=== PATIENT | female | born 1970 | race Two or more races ===

== ENCOUNTER 2023-08-14 17:57 | Emergency (ER) | payer OTHER ==
[~2023-08-14] VITALS: Ht 167.6 cm; Wt 100.0 kg
[2023-08-14] MEDS ORDERED: ONDANSETRON ODT 4 MG TAB PO ONE (20:00)
[2023-08-14] MEDS ORDERED: MORPHINE SULFATE INJ 2 MG/ml SYRG IM ONE (20:00)
[2023-08-14 20:15] VITALS: TEMP 98
[2023-08-14 20:16] VITALS: O2SAT 94
[2023-08-14 20:36] VITALS: BP 120/63; PULSE 78; RESP 18
[2023-08-14] MEDS ORDERED: KETOROLAC TROMETH 60MG/2ML VIAL IM ONE (20:45)
[2023-08-14] MEDS ORDERED: ACE3T PO (22:36)
[2023-08-14] MEDS ORDERED: CYCL-837 PO (22:36)
[2023-08-14] MEDS ORDERED: CEPH500C PO (22:36)
== END 2023-08-14 23:18 | disposition home or self-care (01) ==
LOC: ER 17:57 → EDBD 17:57 → ER 23:00
DX: S22.088A Other fracture of T11-T12 vertebra, initial encounter for closed fracture (principal); S01.01XA Laceration without foreign body of scalp, initial encounter; S39.012A Strain of muscle, fascia and tendon of lower back, initial encounter; Z79.899 Other long term (current) drug therapy; Z90.49 Acquired absence of other specified parts of digestive tract; V43.53XA Car driver injured in collision with pick-up truck in traffic accident, initial encounter; Y93.89 Activity, other specified; Y92.89 Other specified places as the place of occurrence of the external cause; Y99.8 Other external cause status
CPT/HCPCS: 12001; 70450; 72125; 72128; 72131; 96372; 99285; J1885; J2270; Q0162